=== PATIENT | male | born 1970 | race African-American/Black ===

== ENCOUNTER 2017-01-27 08:58 | Day surgery (SDC) | payer BC, OTHER ==
[2017-01-15 12:54] VITALS: BMI 35.2
[2017-01-27] MEDS ORDERED: HEPARIN NA (PORCINE) 5,000 UNITS/ML 1ML VIAL ONE (09:36)
[2017-01-27] MEDS ORDERED: LIDOCAINE HCL 1%, 10 MG/ML (20ML VIAL) ONE (11:32)
[2017-01-27] MEDS ORDERED: BACITRACIN 30 GM TUBE TOPICAL OINTMENT ONE (11:32)
[2017-01-27] MEDS ORDERED: EPINEPHrine/PF 1 MG/1 ML (1:1,000) AMPULE ONE (11:33)
[2017-01-27] MEDS ORDERED: MIDAZOLAM HCL 2 MG/2 ML SINGLE DOSE VIAL ONE (11:55)
[2017-01-27] MEDS ORDERED: ROCURONIUM BROMIDE 50 MG/5 ML VIAL ONE ×2 (12:18→13:24)
[2017-01-27] MEDS ORDERED: ONDANSETRON 4 MG/2 ML VIAL ONE (13:38)
[2017-01-27] MEDS ORDERED: ceFAZolin SODIUM 1 GM VIAL ONE (13:38)
[2017-01-27] MEDS ORDERED: DEXAMETHASONE SOD PHOSPHATE 4 MG/1 ML VIAL ONE (13:38)
[2017-01-27] MEDS ORDERED: GLYCOPYRROLATE 0.2 MG/1 ML VIAL ONE (13:59)
[2017-01-27] MEDS ORDERED: NEOSTIGMINE METHYLSULFATE 0.5 MG/ML - 10 ML MDV ONE (13:59)
[2017-01-27] MEDS ORDERED: PROMETHAZINE HCL 25 MG/1 ML VIAL IVPUSH PRN (14:11)
[2017-01-27] MEDS ORDERED: ONDANSETRON 4 MG/2 ML VIAL IVPUSH PRN (14:11)
[2017-01-27] MEDS ORDERED: LACTATED RINGERS SOLUTION 1,000 ML IV SCH ×2 (14:15→15:45)
[2017-01-27] MEDS ORDERED: ONDANSETRON 4 MG/2 ML VIAL IVPB PRN (15:32)
--- NOTE | 2017-01-27 16:20 | SURG ---
Surgery Congressional Aide Note Congressional Aide: Lenard Jaime PA-C Date of Service: 01/27/17 Diagnosis: Panniculitis Procedure: Panniculectomy I was present for the entirety of the operative procedure. For further detail, please refer to operative report. Visit type - Case Type Case Type: Scheduled Admission - New patient This patient is new to me today: Yes Date on this admission: 01/27/17
[2017-01-27] MEDS: oxyCODONE HCL 5 MG TABLET PO PRN ×2 (17:40→23:00)
[2017-01-27] MEDS: CEFAZOLIN (PRE-DOCKED) 50 ML IVPB SCH (21:29)
[2017-01-27] MEDS: morphine CARPU-JECT 10 MG/1 ML DISP.SYRIN IVPUSH PRN (21:34)
[2017-01-28] MEDS: oxyCODONE HCL 5 MG TABLET PO PRN ×3 (01:49→08:36)
[2017-01-28] MEDS: CEFAZOLIN (PRE-DOCKED) 50 ML IVPB SCH ×2 (03:00→09:15)
[2017-01-28] MEDS: morphine CARPU-JECT 10 MG/1 ML DISP.SYRIN IVPUSH PRN (04:30)
[2017-01-28 05:54] VITALS: BP 105/67; PULSE 61; TEMP 98.2
[2017-01-28] MEDS: HEPARIN NA (PORCINE) 5,000 UNITS/ML 1ML VIAL SQ SCH ×2 (06:34→09:15)
[2017-01-28] MEDS ORDERED: morphine CARPU-JECT 4 MG/1 ML DISP.SYRIN IVPUSH PRN (07:58)
--- NOTE | 2017-01-28 08:07 | PN ---
Progress Note (short form) - Note Progress Note: POD 1 s/p panniculectomy. All tissues viable, KHUSHI appropriate, ambulating, stephanie PO VSS AF f/u one week, OK for discharge.
[2017-01-28] MEDS ORDERED: PT OWN MED DRAWER 7, Y5N ONE (09:14)
--- NOTE | 2017-01-28 10:52 | OP ---
DATE OF OPERATION: 01/27/2017 TITLE OF PROCEDURE: Panniculectomy with bilateral flank liposuction. PREOPERATIVE DIAGNOSIS: Panniculitis with recurrent skin breakdown and intertriginous rashes and infections. POSTOPERATIVE DIAGNOSIS: Panniculitis with recurrent skin breakdown and intertriginous rashes and infections with abdominal lipodystrophy. ATTENDING SURGEON: Ned Azul MD TOOLMAN: MANDO Gunn ANESTHESIA: General endotracheal anesthesia. DESCRIPTION OF PROCEDURE: The patient was marked in the holding area, awake and aware of incisions and resulting scars. He understood and agreed to proceed. He was brought to the operating room, placed in a supine position. He had been given 5000 units of subcutaneous heparin preoperatively. Patient was given 2 g of Ancef preoperatively. Sequential compression stockings were applied. He was prepped and draped in standard surgical fashion. A time-out was called. Patient, procedure, incision sites were verified. At this point, the panniculectomy incisions were made. Dissection was carried down to the prefascial fat. The entire dissection was maintained superficial to the fascia. Perforating blood vessels were identified and suture ligated where necessary. Dissection carried up to the level of the umbilicus, where the umbilicus was performed, attached to its deep attachments. Hemostasis was meticulously achieved. A wetting solution was then infiltrated to the bilateral flanks. At this point, full 20 minutes was awaited for hemostatic effect of the wetting solution. Closure was begun with a series of interrupted buried Scarpas layer 2-0 Vicryl suture followed by a series of interrupted buried deep dermal 3-0 Monocryl suture followed by a running subcuticular 3-0 Monocryl suture. The closure was performed over two separate size 10 flat KHUSHI drains, brought out through the lateral extents of the incisions bilaterally, secured with 3-0 silk drain suture. Prior to final closure, liposuction was performed with a power-assisted system using 5-mm cannulas. A total of 700 mL of lipoaspirate was yielded from each side employing a smooth, even contour. All dressings were placed with Steri-Strips, ABD gauze, Hypafix tape, abdominal binder. Patient was maintained in a flexed position, transferred to recovery without complications. It should be noted that the wetting solution for this case was 1 L of normal saline with 1% lidocaine, 20 mL, and 1 ampule of 1:1000 epinephrine injected infiltrated per liter. Yony [id number]
--- NOTE | 2017-01-29 15:46 | PATH ---
Surgical Pathology Report Patient Name: MORE BRADF[facility]. Rec. #: [id number] /Age/Gender: 1970 (Age: 46) / M Account: [id number] Location: [facility] AMBULATORY Taken: 01/28/2017 Received: 01/28/2017 Reported: 01/29/2017 Physicians: Ned Azul Specimen(s) Received ABDOMINAL SKIN AND TISSUE Clinical History Panniculitis Final Diagnosis ABDOMINAL SKIN AND TISSUE, PANNICULECTOMY WITH FLANK LIPOSUCTION: SKIN AND ADIPOSE TISSUE, DESCRIBED (GROSS EXAMINATION ONLY). Electronically Signed Anum Bullock M.D. Gross Description Received in formalin labeled "abdominal skin and tissue," is a 2367 g aggregate of 2 brown firm irregular, unoriented portion of skin with underlying soft tissue. The specimens measure 31.0 x 29.5 x 4.5 cm in aggregate. The epidermal surfaces are unremarkable. Sectioning of the underlying soft tissue reveals predominantly yellow, lobulated adipose tissue with interspersed white fibrous tissue. No discrete lesions are identified. No sections are submitted, gross only. /01/28/2017 [facility]01/28/2017
== END 2017-01-28 10:43 | disposition home or self-care (01) ==
LOC: FASU 08:58 → FM/S 16:37 → FASU 01-28 10:43
PROVIDERS: ATTEND Plastic Surgery
PROC: 0J083ZZ Alteration of Abdomen Subcutaneous Tissue and Fascia, Percutaneous Approach (ICD-10-PCS; 2017-01-27)
PROC: 0JB80ZZ Excision of Abdomen Subcutaneous Tissue and Fascia, Open Approach (ICD-10-PCS; principal; 2017-01-27 12:44)
DX: M79.3 Panniculitis, unspecified (principal); L30.4 Erythema intertrigo; L08.89 Other specified local infections of the skin and subcutaneous tissue
CPT/HCPCS: 88300-TC; 94760; J1644